=== PATIENT | male | born 1940 | race Caucasian/White ===

== ENCOUNTER → 2016-12-06 | Outpatient (CLI) | payer MEDICARE ==
[~2016-12-06] MED LIST: ALLO100T PO; AML2.5T PO; AMOX1TAB11 PO; ASP81CT PO; ASPI-860 PO; COLC0.6T7 PO; DOCU100C8 PO; EZET10TA5 PO; FNST5T PO; LACT1CAP62 PO; MAGN400O7 PO; METR500T17 PO; MULT-954 PO; NIAC500T24 PO; OMG1KC PO; PRAV80TA2 PO; PRED5TAB PO; PSYL0.5211 PO; RANI150T11 PO; TAMS0.4C2 PO; TRM50T PO
== END ==
LOC: LAB 07:57
PROVIDERS: ATTEND Internal Medicine
DX: M35.3 Polymyalgia rheumatica (principal)
CPT/HCPCS: 36415; 85652

== ENCOUNTER → 2017-01-02 | Outpatient (CLI) | payer MEDICARE ==
[2017-01-02 08:50] LABS: ALBUMIN 3.8 g/dL (3.4-5.0); ANION GAP 13.3 MEQ/L (3-15); PHOSPHORUS 3.8 mg/dL (2.4-4.9)
== END ==
LOC: LAB 08:03
PROVIDERS: ATTEND Internal Medicine Nephrology
DX: N18.4 Chronic kidney disease, stage 4 (severe) (principal)
CPT/HCPCS: 36415; 80069

== ENCOUNTER → 2017-01-18 | Outpatient (CLI) | payer MEDICARE | LOC: LAB 07:43 | PROVIDERS: ATTEND Internal Medicine | DX: E78.2 Mixed hyperlipidemia (principal) | CPT/HCPCS: 36415; 80061 ==

== ENCOUNTER → 2017-03-20 | Outpatient (CLI) | payer MEDICARE | LOC: LAB 07:32 | PROVIDERS: ATTEND Internal Medicine | DX: M35.3 Polymyalgia rheumatica (principal) | CPT/HCPCS: 36415; 85652 ==

== ENCOUNTER → 2017-04-10 | Outpatient (CLI) | payer MEDICARE ==
--- NOTE | 2017-04-10 10:01 | Diagnostic Imaging Report ---
INDICATION: Ankle pain. 3 views. AVAILABLE COMPARISONS: None FINDINGS: Moderate to severe of the lateral tibiotalar joint space is present with suspected areas of subcortical lucency in the talus and lateral tibia at that region. These are probably geodes. There is no cortical disruption. There is no fracture or other focal osseous abnormality identified. IMPRESSION: 1. 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 Otherwise negative. Dictated by: Dictated on workstation # [id number]
== END ==
LOC: RAD 09:27
PROVIDERS: ATTEND Physician Assistant Surgical
DX: M25.572 Pain in left ankle and joints of left foot (principal)
CPT/HCPCS: 73610

== ENCOUNTER → 2017-04-14 | Outpatient (REF) | payer MEDICARE ==
[2017-04-14 09:51] LABS: BASOPHILS % (AUTO) 0 % (0-2); EOSINOPHILS # (AUTO) 0.3 10^3uL; EOSINOPHILS % (AUTO) 3 % (0-4); MEAN CORPUSCULAR HEMOGLOBIN 31.3 PG (26.0-34.0); MEAN CORPUSCULAR HGB CONC 33.2 g/dL (31.0-37.0); MEAN CORPUSCULAR VOLUME 94 FL (80-100); MEAN PLATELET VOLUME 10.1 FL (6.0-9.5); MONOCYTES % (AUTO) 11 % (3-11); NEUTROPHILS # (AUTO) 7.1 X10^3; NEUTROPHILS % (AUTO) 75 % (51-67); PLATELET COUNT 201 10^3uL (150-450); WHITE BLOOD COUNT 9.38 10^3uL (4.0-11.0)
[2017-04-14 10:03] LABS: ANION GAP 14.9 MEQ/L (3-15); CALCULATED IONIZED CALCIUM 4.5 mg/dL (3.8-4.6); TOTAL PROTEIN 6.5 g/dL (6.4-8.5)
== END ==
LOC: LAB 09:37
PROVIDERS: ATTEND Nurse Practitioner Family
DX: R10.84 Generalized abdominal pain (principal)
CPT/HCPCS: 80053; 85025